=== PATIENT | male | born 1955 | race Caucasian/White ===

== ENCOUNTER → 2019-06-08 14:54 | Outpatient (CLI) | payer BC, SELFPAY ==
--- NOTE | 2019-06-08 15:01 | RAD_ITS ---
STUDY: X-RAY CHEST REASON FOR EXAM: Male, 63 years old. Right lower lobe pneumonia. TECHNIQUE: PA and lateral views of the chest. COMPARISON: None. FINDINGS: The lungs are slightly underexpanded with mild bilateral atelectasis, more significant on the right compared to the left. No distinct consolidation to suggest pneumonia. There is no demonstrated pleural abnormality. Normal size heart. Normal mediastinum and kait. Normal visualized pulmonary arteries. There is atherosclerotic calcification of the aortic arch with tortuosity. There are diffuse degenerative changes of the visualized thoracic spine. There is degenerative osteoarthritis of the bilateral shoulders. There is no demonstrated abnormality of the visualized soft tissue structures of the upper abdomen. RAD/Chest PA and Lateral IMPRESSION: Bilateral atelectasis, right more severe compared to left. Otherwise no acute cardiopulmonary process seen. Electronically Signed: Betsy Tilley MD at 7:03 EST , Service support ,
== END ==
PROVIDERS: Family Provider Family Medicine; PCP Family Medicine; Referring Provider Family Medicine; Visit Provider Family Medicine
DX: J18.1 Lobar pneumonia, unspecified organism (principal)
CPT/HCPCS: 71046

== ENCOUNTER → 2023-04-06 | Outpatient (CLI) | payer MEDICARE, SELFPAY ==
--- NOTE | 2023-04-06 08:12 | AAAS_ITS ---
Reason For Study: AAA Screening Aorta Measurements Aorta Doppler Measurements Proximal aorta measures1.98 x 1.94cm. in cross- Peak systolic flow velocities within the proximal sectional axis. aorta measure 99.5 cm/sec. Proximal aorta measures1.95cm. in longitudinal Peak systolic flow velocities within the mid aorta axis. measure 99.5 cm/sec. Mid aorta measures1.68 x 1.71cm. in cross- Peak systolic flow velocities within the distal sectional axis. aorta measure 119.4 cm/sec. Mid aorta measures1.72cm. in longitudinal axis. Distal aorta measures1.66 x 1.66cm. in cross- sectional axis. Distal aorta measures1.71cm. in longitudinal axis. Left Iliac Artery Left iliac artery measures 1.69 x 1.66 cm. in the cross-sectional axis. Left iliac artery measures 1.68 cm. in the longitudinal axis. Peak systolic velocity in the left iliac artery measures 118.3 cm/sec. Right Iliac Artery Right iliac artery measures 1.59 x 1.54 cm. in the cross-sectional axis. Right iliac artery measures 1.5 cm. in the longitudinal axis. Peak systolic velocity in the right iliac artery measures 166.6 cm/sec. Procedure Aorta IVC Iliac vasculature or bypass grafts [id number]. Exam performed in department. VL/AAA Screening Interpretation Summary Aorta patent, normal caliber Right iliac artery patent, ectatic to 1.68 cm Left iliac Jerry patent, ectatic to 1.5 cm Ordering Physician: Cholo Vega Referring Physician: Cholo Vega Performed By: Lizzette Larry RVT
== END | disposition home or self-care (01) ==
LOC: CVS 07:41
PROVIDERS: PCP Family Medicine; Referring Provider Family Medicine; Visit Provider Family Medicine
DX: Z13.6 Encounter for screening for cardiovascular disorders (principal)
CPT/HCPCS: 76706

== ENCOUNTER 2023-11-14 13:40 | Outpatient (CLI) | payer MEDICARE, SELFPAY ==
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
== END 2023-11-14 23:59 | disposition home or self-care (01) ==
PROVIDERS: PCP Family Medicine; Referring Provider Family Medicine; Visit Provider Family Medicine
DX: M25.531 Pain in right wrist (principal)
CPT/HCPCS: 73110